=== PATIENT | female | born 1970 ===

== ENCOUNTER 2019-08-31 00:02 | Emergency (ER) | payer MEDICAID ==
[~2019-08-31] VITALS: Ht 172.7 cm; Wt 72.7 kg
[2019-08-31 00:03] VITALS: Ht 172.7 cm; Wt 72.7 kg
[2019-08-31 00:52] LABS: BASOPHILS 0.3 % (0-2); EOSINOPHILS 1.7 % (0-7); HEMATOCRIT 38.1 % (36.0-48.0); HEMOGLOBIN 12.7 g/dL (12-16); IMMATURE GRANULOCYTES 0.2 % (0-5); LYMPHOCYTES 18.2 % (15-50); MCH 31.2 pg (26.0-34.0); MCHC 33.3 g/dL (31.0-37.0); MCV 93.6 fL (80.0-100.0); MEAN PLATELET VOLUME 11.1 fL (7.4-10.4); MONOCYTES 7.4 % (2-11); NEUTROPHILS 72.2 % (40-80); PLATELET COUNT 266 10x3/uL (130-400); RBC 4.07 10x6/uL (4.00-5.40); RDW 12.4 % (11.5-14.5); WBC 12.1 10x3/uL (4.8-10.8)
[2019-08-31 01:02] LABS: CALC OSMOLALITY 283 mosm/kg (275-300); CALCIUM 9.4 mg/dL (8.5-10.1); CARBON DIOXIDE 24.7 mmol/L (21.0-32.0); CHLORIDE - SERUM 102 mmol/L (98-107); CREATININE - SERUM 1.5 mg/dL (0.6-1.3); GLUCOSE 80 mg/dL (74-106); POTASSIUM - SERUM 3.4 mmol/L (3.5-5.1); SODIUM 140 mmol/L (136-145); UREA NITROGEN 29 mg/dL (7-18); eGFR NON AFRICAN AMERICAN 39 mL/min (90-120)
[2019-08-31 01:09] LABS: BACTERIA MANY /hpf (NEGATIVE); BILIRUBIN NEGATIVE (NEGATIVE); EPITHELIAL CELLS 0-5 /hpf (0-5); GLUCOSE NEGATIVE (NEGATIVE); GRANULAR CAST 0-5 /lpf (NONE SEEN); KETONE SMALL mg/dL (NEGATIVE); NITRITE POSITIVE (NEGATIVE); UROBILINOGEN NORMAL (NORMAL); WHITE CELLS - URINE >50 /hpf (NEGATIVE)
[2019-08-31 01:19] LABS: UDS - AMPHET POSITIVE QUAL (NEGATIVE); UDS - BARB NEGATIVE QUAL (NEGATIVE); UDS - BENZO NEGATIVE QUAL (NEGATIVE); UDS - COCAINE NEGATIVE QUAL (NEGATIVE); UDS - OPIATE POSITIVE QUAL (NEGATIVE); UDS - PCP NEGATIVE QUAL (NEGATIVE); UDS - THC POSITIVE QUAL (NEGATIVE)
[2019-08-31 01:29] LABS: ALKALINE PHOSPHATASE 99 U/L (30-120); ALT (SGPT) 25 U/L (10-68); BILIRUBIN - TOTAL 0.69 mg/dL (0.2-1.3); CREATINE KINASE 461 UL (21-215); PROTEIN - SERUM 8.1 g/dL (6.4-8.2)
[2019-08-31 01:40] LABS: TROPONIN-I < 0.017 ng/mL (0.000-0.060)
[2019-08-31 01:41] LABS: CKMB 4.2 U/L (0.0-3.6)
[2019-08-31] MEDS ORDERED: MACROBID100 MG PO (03:42)
[2019-08-31 15:21] VITALS: BP 115/68
== END 2019-08-31 15:22 | disposition home or self-care (01) ==
LOC: D.ER 00:02
PROVIDERS: Family Medicine
DX: M79.604 Pain in right leg (principal); F15.129 Other stimulant abuse with intoxication, unspecified; N39.0 Urinary tract infection, site not specified; N28.9 Disorder of kidney and ureter, unspecified